=== PATIENT | female | born 1990 | race Two or more races ===

== ENCOUNTER 2018-04-01 23:10 | Emergency (ER) | payer OTHER ==
[~2018-04-01] VITALS: Ht 162.6 cm; Wt 49.4 kg
[2018-04-02 04:00] VITALS: BP 102/70
[2018-04-02] MEDS ORDERED: LIDOCAINE 2%HCL (LOCAL ANESTH.) INJ 10ml MDV IJ ONE (06:30)
[2018-04-02] MEDS ORDERED: LIDOCAINE 2% (LOCAL ANESTH.) PF 5ml SDV ONE ×2 (06:54→06:58)
== END 2018-04-02 07:55 | disposition home or self-care (01) ==
LOC: ER 23:13
DX: N75.1 Abscess of Bartholin's gland (principal)
CPT/HCPCS: 56420; 99284; J2001